=== PATIENT | male | born 1990 | race Caucasian/White ===

== ENCOUNTER 2017-03-06 23:42 | Emergency (ER) | payer BC, MEDICAID, OTHER ==
[~2017-03-06] VITALS: Ht 152.4 cm; Wt 70.8 kg
[~2017-03-06 23:42] MED LIST: BACL10TA PO; HYDR-552 PO
--- NOTE | 2017-03-07 | NUR ---
26 YO MALE BB RA FROM HOME. STATES HE HAS CHEST PAIN, X 1 DAY THAT HURTS MORE WITH MOVING. PT AMBULATED TO ER BED. 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 SKIN WARM AND DRY, RR EVEN AND UNLABORED. AWAITING ORDERS FROM PROVIDER, WILL CONITUE TO MONITOR
[2017-03-07] MEDS ORDERED: KETOROLAC TROMETHAMINE INJ 60 MG/2 ML VIAL IM ONE (01:00)
[2017-03-07] MEDS ORDERED: KETOROLAC TROMETHAMINE INJ 30 MG/ML VIAL ONE (01:03)
[2017-03-07 01:17] VITALS: BP 117/78
--- NOTE | 2017-03-07 01:17 | NUR ---
Patient discharged to home in stable condition. Written and verbal after care instructions given. Patient verbalizes understanding of instruction. PT ambulatory with a steady gait VITAL SIGNS WITHIN NORMAL LIMITS.
== END 2017-03-07 01:19 | disposition home or self-care (01) ==
LOC: ER 23:44
DX: M94.0 Chondrocostal junction syndrome [Tietze] (principal); Z59.0 Homelessness
CPT/HCPCS: 93005; 96372; 99283; A4606 ×2; J1885; Z7610 ×2

== ENCOUNTER 2017-04-08 22:56 | Emergency (ER) | payer OTHER ==
[~2017-04-08] VITALS: Ht 160 cm; Wt 49.0 kg
--- NOTE | 2017-04-08 23:00 | NUR ---
PT BIBRA TO ER BED 14. PER REPORT, PT WAS AT A REDLINE STATION WHEN HE STARTED C/O DIZZINESS. PT DENIES ANY OTHER COMPLAINTS AT THIS TIME. PLACED ON MONITOR. VSS. AWAITINGMD EVAL.
[2017-04-09] MEDS ORDERED: MECLIZINE HCL 25 MG TABLET ONE (00:12)
[2017-04-09] MEDS ORDERED: METOCLOPRAMIDE HCL 10 MG/2 ML VIAL ONE (00:12)
[2017-04-09] MEDS ORDERED: HYDROMORPHONE 1 MG/1 ML DISP.SYRIN ONE ×2 (00:13→02:02)
--- NOTE | 2017-04-09 00:15 | NUR ---
CALLED LAB FOR BLOOD DRAW.
--- NOTE | 2017-04-09 00:25 | NUR ---
PT IS DEAF. WROTE ALL INFORMATION FOR PT ABOUT MEDICATION TO BE GIVEN. PT OK'D MEDICATION ADMINISTRATION.
--- NOTE | 2017-04-09 00:25 | NUR ---
PT REC'D MEDICATION ORDERED.
--- NOTE | 2017-04-09 00:29 | NUR ---
XRAY IS AT THE BEDSIDE.
[2017-04-09] MEDS ORDERED: MECLIZINE HCL 12.5 MG TABLET PO ONE (00:30)
[2017-04-09] MEDS ORDERED: METOCLOPRAMIDE HCL 10 MG/2 ML VIAL IM ONE (00:30)
[2017-04-09] MEDS ORDERED: HYDROMORPHONE INJ 2 MG/ML DISP.SYRIN IM ONE (00:30)
[2017-04-09 00:42] LABS: BASOPHILS # (AUTO) 0.1 /CMM (0.0-0.2); BASOPHILS % (AUTO) 1.2 % (0.0-2.0); EOSINOPHILS # (AUTO) 0.1 /CMM (0.0-0.7); HEMATOCRIT 45 % (39-51); HEMOGLOBIN 14.9 g/dL (13.5-17.5); LYMPHOCYTES # (AUTO) 1.8 /CMM (0.8-4.8); LYMPHOCYTES % (AUTO) 32.6 % (20.0-44.0); MEAN CORPUSCULAR HEMOGLOBIN 32 PG (26.0-33.0); MEAN CORPUSCULAR HGB CONC 33 g/dl (31.0-36.0); MEAN CORPUSCULAR VOLUME 96 fL (80-96); MONOCYTES # (AUTO) 0.5 /CMM (0.1-1.30); MONOCYTES % (AUTO) 9.6 % (2.0-12.0); NEUTROPHILS % (AUTO) 54.6 % (43.0-81.0); PLATELET COUNT (AUTO) 146 /CMM (150-450); RDW COEFFICIENT OF VARIATION 13.4 (11.5-15.0); RED BLOOD CELL COUNT(AUTO) 4.66 MIL/uL (4.5-6.0); WHITE BLOOD COUNT (AUTO) 5.5 K/uL (4.3-11.0)
[2017-04-09 00:57] LABS: CALCIUM, SERUM 8.8 mg/dL (8.5-10.1); CREATININE 0.9 mg/dL (0.6-1.3)
[2017-04-09 01:00] LABS: PROTHROMBIN TIME 10.7 SECS (9.5-12.7)
[2017-04-09 01:02] LABS: ALBUMIN 4.1 g/dL (3.4-5.0); BILIRUBIN,DIRECT 0.1 mg/dL (0.0-0.2); BILIRUBIN,TOTAL 0.4 mg/dL (0.2-1.0); TOTAL PROTEIN, SERUM 6.8 g/dL (6.4-8.2)
[2017-04-09] MEDS ORDERED: HYDROMORPHONE 1 MG/1 ML DISP.SYRIN IM ONE (02:00)
--- NOTE | 2017-04-09 02:41 | NUR ---
called [facility] [phone], per mac no opthalmology higher level of care until 0900 today.
--- NOTE | 2017-04-09 03:04 | NUR ---
[facility] transfer hotline called [phone]- spoke with everardo ayon facesheet and results to [phone]
--- NOTE | 2017-04-09 03:21 | NUR ---
Clemente doty in ED - 04/09/[address] carlos speaking to opthalmologist from [facility] regarding poc
--- NOTE | 2017-04-09 03:26 | NUR ---
dr. carlos speaking to opthalmologist, DR BOWLING from [facility] regarding poc
[2017-04-09 04:39] VITALS: BP 138/68
--- NOTE | 2017-04-09 04:44 | NUR ---
Patient discharged to home in stable condition. Written and verbal after care instructions given. Patient verbalizes understanding of instruction. ambulatory with a steady gait. instructed not to drive. pt verbalize understanding.
== END 2017-04-09 04:45 | disposition home or self-care (01) ==
LOC: ER 22:59
DX: R42 Dizziness and giddiness (principal); R51 Headache; G89.29 Other chronic pain; R79.1 Abnormal coagulation profile; G80.9 Cerebral palsy, unspecified; Z91.011 Allergy to milk products; Z59.0 Homelessness; Z88.0 Allergy status to penicillin
CPT/HCPCS: 36415; 70450-TC; 80048-TC; 80076-TC; 85025-TC; 85730-TC; A4606; J1170; J2765; J8597; Z7610